=== PATIENT | female | born 1945 | race Caucasian/White ===

== ENCOUNTER → 2016-07-21 | Outpatient (CLI) | payer MEDICARE ==
[~2016-07-21] MED LIST: ADVAIR HFA120 INHALA IH; AMLODIPINE BES2.5 MG PO; AMOXICILLIN500 MG PO; AZITHROMYCIN250 MG PO; Advair HFA 115/21 IH; BENADRYL ALLERG25 MG PO; BUPROPION HCL150 M2 PO; BUTALB-APAP-CA1 EACH PO; Benadryl PO; CEFUROXIME500 MG PO; DELTASONE20 M1 PO; FIORINAL; FIORINAL 50-321 EACH PO; FIORINAL PO; FUROSEMIDE20 MG PO; HYDROCODON-ACE1 EAC7 PO; Habitrol,Nicoderm CQ TD; INCRUSE ELLI62.5 MCG IH; LASIX20 MG PO; LEVAQUIN500 MG PO; LEVOFLOXACIN750 MG PO; Levaquin PO; MEDROL DOSEPAK4 MG PO; NAPROXEN500 MG PO; NICOTINE PATCH1 EAC1 TD; NICOTINE PATCH1 EAC2 TD; OXYCODONE-APAP1 EAC6 PO; PERCOCET; PREDNISONE10 MG PO; PREDNISONE20 MG PO; PREDNISONE50 MG PO; PROVENTIL,2.5 MG/3 M IH; Proventil,Ventolin H IH; Robitussin AC,Tussi- PO; SPIRIVA RESPIMAT4 GM IH; SPIRIVA1 INHALATI IH; VENTOLIN HFA18 GM IH; Vicodin,Norco 5/325 PO; ZYRTEC10 M3 PO; ZyrTEC PO; predniSONE PO
== END | disposition home or self-care (01) ==
LOC: CDC 12:23
DX: I51.7 Cardiomegaly (principal); I45.10 Unspecified right bundle-branch block; H25.12 Age-related nuclear cataract, left eye
CPT/HCPCS: 93000

== ENCOUNTER 2017-03-18 13:23 | Emergency (ER) | payer OTHER ==
[~2017-03-18] VITALS: Ht 160 cm; Wt 82.1 kg
[2017-03-18 13:53] LABS: HEMATOCRIT 38.4 % (36.0-46.0); HEMOGLOBIN 12.3 G/DL (11.9-15.5); MCH 27.8 PG (29.0-34.0); MCV 86.7 FL (83-99); PLATELET COUNT 274 K/uL (156-360); RBC DIS.WIDTH-CV 14.2 % (11.8-14.6); RBC DIS.WIDTH-SD 45.3 % (39-53); RED BLOOD COUNT 4.43 M/uL (3.80-5.20); WHITE BLOOD COUNT 8.2 K/uL (4.1-10.2)
[2017-03-18 14:00] LABS: CHLORIDE 104 mEq/L (99-109); SODIUM 137 mEq/L (136-147)
[2017-03-18 14:02] LABS: GLUCOSE 108 mg/dL (70-99)
[2017-03-18 14:06] LABS: CREATININE 0.9 mg/dL (0.6-1.3); GFR ESTIMATE (CALCULATED) > 59 mL/min/
[2017-03-18 14:07] LABS: UREA NITROGEN (BUN) 15 mg/dL (9-23)
[2017-03-18] MEDS ORDERED: TESSALON PERLE100 MG PO (18:24)
[2017-03-18] MEDS ORDERED: PREDNISONE20 MG PO (18:24)
[2017-03-18] MEDS ORDERED: LASIX20 MG PO (18:24)
[2017-03-18 19:53] VITALS: BP 129/60
== END 2017-03-18 19:55 | disposition home or self-care (01) ==
LOC: EME 13:23
PROVIDERS: Physician Assistant
DX: J10.1 Influenza due to other identified influenza virus with other respiratory manifestations (principal); J44.1 Chronic obstructive pulmonary disease with (acute) exacerbation; R60.0 Localized edema; F17.200 Nicotine dependence, unspecified, uncomplicated
CPT/HCPCS: 71046; 80048; 83880; 85027; 87502; 94640; 99281; 99284; J1940; J2930

== ENCOUNTER 2017-10-09 20:57 | Inpatient (IN) | payer OTHER ==
[~2017-10-09] VITALS: Ht 160 cm; Wt 80.1 kg
[~2017-10-09 20:57] MED LIST changes: +TESSALON PERLE100 MG PO
[2017-10-09 21:43] LABS: HEMATOCRIT 38.2 % (36.0-46.0); MCH 28.3 PG (29.0-34.0); MCV 83.2 FL (83-99); PLATELET COUNT 287 K/uL (156-360); RBC DIS.WIDTH-CV 14.7 % (11.8-14.6); RBC DIS.WIDTH-SD 44.6 % (39-53); RED BLOOD COUNT 4.59 M/uL (3.80-5.20); WHITE BLOOD COUNT 20.2 K/uL (4.1-10.2)
[2017-10-09 21:54] LABS: CHLORIDE 108 mEq/L (99-109); POTASSIUM 4.2 mEq/L (3.7-5.4); SODIUM 144 mEq/L (136-147)
[2017-10-09 21:55] LABS: GLUCOSE 180 mg/dL (70-99)
[2017-10-09 21:59] LABS: CREATININE 0.9 mg/dL (0.6-1.3); GFR ESTIMATE (CALCULATED) > 59 mL/min/
[2017-10-09 22:00] LABS: UREA NITROGEN (BUN) 12 mg/dL (9-23)
[2017-10-09 23:49] LABS: TROP-I INTERPRETATION NEGATIVE; TROPONIN-I < 0.01 ng/mL (0.0-0.30)
[2017-10-10 02:44] LABS: COMMENTS - BLOOD GASES A+C+; DEVICE NC; O2 FLOW 4 L/MIN; PCO2 33 mm Hg (35-45); PO2 50 mm Hg (80-100); SITE RR; TOTAL RESP RATE 24 resp/min; pH 7.47 (7.35-7.45)
[2017-10-10 02:45] LABS: BASE EXCESS 0.8 mEq/L (-3 to +3); BICARBONATE 24 mEq/L (22-26); CARBOXY HGB 3.9 % (0-5); METHEMOGLOBIN 1.3 % (0-1.5); O2 SATURATION (CALCULATED) 92.1 % (95-99)
[2017-10-10 05:14] VITALS: BP 147/63
[2017-10-10 05:43] LABS: HEMATOCRIT 36.9 % (36.0-46.0); HEMOGLOBIN 12.4 G/DL (11.9-15.5); MCHC 33.6 G/DL (30.0-36.0); MCV 83.3 FL (83-99); NRBC (%) 0.1 /100 WBC (0-0); PLATELET COUNT 278 K/uL (156-360); RBC DIS.WIDTH-CV 14.8 % (11.8-14.6); RBC DIS.WIDTH-SD 45.4 % (39-53); RED BLOOD COUNT 4.43 M/uL (3.80-5.20); WHITE BLOOD COUNT 24.9 K/uL (4.1-10.2)
[2017-10-10 06:14] LABS: CHLORIDE 107 MEQ/L (99-109); CREATININE 0.7 MG/DL (0.6-1.3); GFR ESTIMATE (CALCULATED) > 59 mL/min/; GLUCOSE 169 mg/dL (70-99); POTASSIUM 3.8 MEQ/L (3.7-5.4); SODIUM 141 MEQ/L (136-147); UREA NITROGEN (BUN) 11 mg/dL (9-23)
[2017-10-10 07:19] VITALS: BP 154/71
[2017-10-10 10:45] LABS: HEMOGLOBIN A1c (GLYCOHEMOGLOB) 6.8 % (Below 5.7)
[2017-10-10] MEDS ORDERED: BREO ELLIPTA 21 EACH IH (11:23)
[2017-10-10] MEDS ORDERED: BUTALB-ASPIRIN1 EACH PO (11:24)
[2017-10-10] MEDS ORDERED: ZYRTEC10 M3 PO (11:24)
[2017-10-10] MEDS ORDERED: ZANTAC150 MG PO (11:25)
[2017-10-10] MEDS ORDERED: THEOPHYLLINE400 MG PO (11:27)
[2017-10-10] MEDS ORDERED: DELTASONE20 M1 PO (11:29)
[2017-10-10] MEDS ORDERED: OXYCODONE-APAP1 EACH PO (11:30)
[2017-10-10] MEDS ORDERED: GAS-X125 M1 PO (11:30)
[2017-10-10 12:00] VITALS: BP 143/69
[2017-10-10 15:23] VITALS: BP 176/75
[2017-10-10 21:00] VITALS: BP 153/73
[2017-10-11 01:22] VITALS: BP 150/67
[2017-10-11 06:31] VITALS: BP 162/75
[2017-10-11 06:44] LABS: HEMATOCRIT 38.2 % (36.0-46.0); HEMOGLOBIN 12.6 G/DL (11.9-15.5); MCV 84.9 FL (83-99); PLATELET COUNT 279 K/uL (156-360); RBC DIS.WIDTH-CV 14.6 % (11.8-14.6); RBC DIS.WIDTH-SD 45.6 % (39-53); WHITE BLOOD COUNT 21.4 K/uL (4.1-10.2)
[2017-10-11 07:15] LABS: CHLORIDE 105 MEQ/L (99-109); CREATININE 0.9 MG/DL (0.6-1.3); GFR ESTIMATE (CALCULATED) > 59 mL/min/; GLUCOSE 183 mg/dL (70-99); MAGNESIUM 2.2 mg/dl (1.3-2.7); POTASSIUM 4.4 MEQ/L (3.7-5.4); SODIUM 141 MEQ/L (136-147); UREA NITROGEN (BUN) 21 mg/dL (9-23)
[2017-10-11 07:52] VITALS: BP 137/72
[2017-10-11 11:23] VITALS: BP 145/67
[2017-10-11 16:14] VITALS: BP 170/74
[2017-10-11 19:27] VITALS: BP 173/81
[2017-10-12] VITALS (7 sets, daily range): BP systolic 126–167; BP diastolic 64–77
[2017-10-12 05:57] LABS: BASOPHIL (%) 0.1 % (0-1); EOSINOPHIL (%) 0 % (0-5); HEMATOCRIT 35.8 % (36.0-46.0); HEMOGLOBIN 11.5 G/DL (11.9-15.5); IMMATURE GRANULOCYTE (%) 0.7 % (0.0-0.7); LYMPHOCYTE (%) 3.9 % (15-42); LYMPHOCYTE COUNT 0.7 K/uL (1.0-2.8); MCH 27.7 PG (29.0-34.0); MCHC 32.1 G/DL (30.0-36.0); MCV 86.3 FL (83-99); MONOCYTE (%) 4.8 % (3-12); MONOCYTE COUNT 0.9 K/uL (0-0.8); NEUTROPHIL (%) 90.5 % (45-76); NEUTROPHIL COUNT 16.3 K/uL (1.8-6.4); PLATELET COUNT 254 K/uL (156-360); RBC DIS.WIDTH-CV 14.8 % (11.8-14.6); RBC DIS.WIDTH-SD 46.8 % (39-53); RED BLOOD COUNT 4.15 M/uL (3.80-5.20); WHITE BLOOD COUNT 18.1 K/uL (4.1-10.2)
[2017-10-12 06:02] LABS: ALBUMIN 3.1 G/DL (3.2-4.8); ALKALINE PHOSPHATASE 110 IU/L (3-129); ALT (GPT) 14 IU/L (3-49); AST (GOT) 19 IU/L (2-34); CHLORIDE 108 MEQ/L (99-109); CREATININE 0.8 MG/DL (0.6-1.3); GFR ESTIMATE (CALCULATED) > 59 mL/min/; GLUCOSE 183 mg/dL (70-99); POTASSIUM 4.8 MEQ/L (3.7-5.4); SODIUM 142 MEQ/L (136-147); TOTAL BILIRUBIN 0.3 MG/DL (0.0-1.0); TOTAL PROTEIN 5.8 G/DL (6.4-8.3); UREA NITROGEN (BUN) 29 mg/dL (9-23)
[2017-10-13 03:10] VITALS: BP 151/67
[2017-10-13 06:00] LABS: BASOPHIL (%) 0.2 % (0-1); EOSINOPHIL (%) 0 % (0-5); HEMOGLOBIN 11.1 G/DL (11.9-15.5); IMMATURE GRANULOCYTE (%) 1.3 % (0.0-0.7); LYMPHOCYTE COUNT 1.4 K/uL (1.0-2.8); MCH 27.4 PG (29.0-34.0); MCHC 31.7 G/DL (30.0-36.0); MCV 86.4 FL (83-99); MONOCYTE (%) 10.6 % (3-12); MONOCYTE COUNT 1.5 K/uL (0-0.8); NEUTROPHIL (%) 77.9 % (45-76); NEUTROPHIL COUNT 11.1 K/uL (1.8-6.4); PLATELET COUNT 248 K/uL (156-360); RBC DIS.WIDTH-CV 14.8 % (11.8-14.6); RBC DIS.WIDTH-SD 47.3 % (39-53); RED BLOOD COUNT 4.05 M/uL (3.80-5.20); WHITE BLOOD COUNT 14.2 K/uL (4.1-10.2)
[2017-10-13 06:14] LABS: CHLORIDE 109 MEQ/L (99-109); CREATININE 0.8 MG/DL (0.6-1.3); GFR ESTIMATE (CALCULATED) > 59 mL/min/; GLUCOSE 133 mg/dL (70-99); SODIUM 145 MEQ/L (136-147); UREA NITROGEN (BUN) 29 mg/dL (9-23)
[2017-10-13 07:55] VITALS: BP 171/79
[2017-10-13 11:35] VITALS: BP 168/77
[2017-10-13 14:35] VITALS: BP 170/77
[2017-10-13 19:20] VITALS: BP 145/67
[2017-10-14] VITALS: BP 148/67
[2017-10-14 03:42] VITALS: BP 164/83
[2017-10-14 06:06] LABS: BASOPHIL (%) 0.2 % (0-1); EOSINOPHIL COUNT 0.1 K/uL (0-0.3); HEMATOCRIT 34.6 % (36.0-46.0); HEMOGLOBIN 11.1 G/DL (11.9-15.5); IMMATURE GRANULOCYTE (%) 1.5 % (0.0-0.7); LYMPHOCYTE (%) 27.9 % (15-42); LYMPHOCYTE COUNT 2.7 K/uL (1.0-2.8); MCH 27.5 PG (29.0-34.0); MCHC 32.1 G/DL (30.0-36.0); MCV 85.9 FL (83-99); MONOCYTE (%) 10.6 % (3-12); NEUTROPHIL (%) 58.8 % (45-76); NEUTROPHIL COUNT 5.6 K/uL (1.8-6.4); PLATELET COUNT 222 K/uL (156-360); RBC DIS.WIDTH-CV 14.6 % (11.8-14.6); RBC DIS.WIDTH-SD 45.6 % (39-53); RED BLOOD COUNT 4.03 M/uL (3.80-5.20); WHITE BLOOD COUNT 9.6 K/uL (4.1-10.2)
[2017-10-14 06:24] LABS: CHLORIDE 108 MEQ/L (99-109); CREATININE 0.8 MG/DL (0.6-1.3); GFR ESTIMATE (CALCULATED) > 59 mL/min/; SODIUM 145 MEQ/L (136-147); UREA NITROGEN (BUN) 23 mg/dL (9-23)
[2017-10-14 06:28] LABS: GLUCOSE 93 mg/dL (70-99)
[2017-10-14 07:32] VITALS: BP 164/74
[2017-10-14 11:32] VITALS: BP 161/75
[2017-10-14 15:29] VITALS: BP 134/65
[2017-10-14 19:33] VITALS: BP 146/67
[2017-10-15] VITALS: BP 141/70
[2017-10-15 04:00] VITALS: BP 147/69
[2017-10-15 07:29] VITALS: BP 167/77
[2017-10-15 10:59] VITALS: BP 153/68
[2017-10-15] MEDS ORDERED: DOXYCYCLINE HY100 M3 PO (11:31)
[2017-10-15] MEDS ORDERED: AMLODIPINE BESYL5 MG PO (11:31)
[2017-10-15] MEDS ORDERED: METFORMIN HCL500 MG PO (11:31)
[2017-10-15] MEDS ORDERED: AUGMENTIN875 MG PO (11:31)
[2017-10-15] MEDS ORDERED: NICOTINE PATCH1 EAC2 TD (11:31)
[2017-10-15] MEDS ORDERED: BENZONATATE100 MG PO (11:31)
[2017-10-18 16:35] LABS: Neutrophil Cytoplasmic Aby Negative
== END 2017-10-15 12:27 | disposition home or self-care (01) | DRG 189 ==
LOC: EME 20:57 → 4EAST 10-10 03:11 → EDOF 10-10 03:11 → ENRESERV 10-10 03:14 → 4EAST 10-10 04:51 → 5SOUTH 10-13 14:14
PROVIDERS: Hospitalist; Internal Medicine; Internal Medicine Pulmonary Disease
DX: J96.01 Acute respiratory failure with hypoxia (principal); J15.9 Unspecified bacterial pneumonia; J44.0 Chronic obstructive pulmonary disease with (acute) lower respiratory infection; J44.1 Chronic obstructive pulmonary disease with (acute) exacerbation; I11.0 Hypertensive heart disease with heart failure; I50.32 Chronic diastolic (congestive) heart failure; I27.21 Secondary pulmonary arterial hypertension; E11.9 Type 2 diabetes mellitus without complications; G89.4 Chronic pain syndrome; K21.9 Gastro-esophageal reflux disease without esophagitis; F17.210 Nicotine dependence, cigarettes, uncomplicated
CPT/HCPCS: 36600; 71045; 71046; 71250; 80048; 80053; 82164 90; 82948; 83036; 83605; 83735; 83880; 84484; 85025; 85027; 86021 90; 86038; 86430; 87040; 87070; 87205; 87449; 87502; 93005; 93306; 93970; 94640; 94799; 99281; 99285; J0295; J1644; J1815; J2930; J7050; J7512